=== PATIENT | female | born 1965 | race Caucasian/White ===

== ENCOUNTER 2016-11-22 14:54 | Outpatient (CLI) | payer OTHER ==
--- NOTE | 2016-11-22 16:57 | XRay Report ---
LEFT SHOULDER: Pain. Routine views demonstrate normal bony and soft tissue structures with normal joint alignment of the shoulder. IMPRESSION: Normal study.
--- NOTE | 2016-11-23 08:11 | XRay Report ---
Bilateral knee: History: Knee pain. Findings: Minimal narrowing of the medial and patellofemoral compartment right and left knee joint. Sclerotic adjacent articular surfaces with small peripheral osteophytes suggestive of degenerative changes. Mild degenerative changes of the lateral compartment. No joint effusion. No fracture. No soft tissue calcification. Impression: Tricompartment mild degenerative changes bilaterally.
== END 2016-11-22 14:55 | disposition home or self-care (01) ==
LOC: XRAY 14:54
PROVIDERS: ATTEND Internal Medicine Rheumatology
DX: M17.0 Bilateral primary osteoarthritis of knee (principal); M25.512 Pain in left shoulder